=== PATIENT | female | born 2000 | race Caucasian/White ===

== ENCOUNTER 2021-07-30 15:26 | Outpatient (REF) | payer BC, SELFPAY ==
[2021-08-01 15:13] LABS: Chlamydia Result Negative (Negative); GC Result Negative (Negative)
== END 2021-07-30 15:27 | disposition home or self-care (01) ==
LOC: LBN 15:26
PROVIDERS: Visit Provider Physician Assistant Medical
DX: N39.0 Urinary tract infection, site not specified (principal); N89.8 Other specified noninflammatory disorders of vagina
CPT/HCPCS: 87077; 87491; 87591; 87086; 87186; 87480; 87510; 87660

== ENCOUNTER 2021-08-16 16:47 | Outpatient (REF) | payer BC, SELFPAY ==
[2021-08-16 16:28] LABS: Bacteria Many HPF (Negative); C & S Indicated? C&S Done As Ordered; Casts Negative LPF (Negative); Crystals Negative HPF (Negative); Epithelial Cells Few HPF (Negative); Mucus Trace (Negative); WBC >50 HPF (0-5)
[2021-08-17 15:06] LABS: Chlamydia Result Negative (Negative); GC Result Negative (Negative)
[2021-08-18 10:39] LABS: COVID-19 RT-PCR UVMMC Result Negative (Negative)
== END 2021-08-16 16:48 | disposition home or self-care (01) ==
LOC: LBN 16:47
PROVIDERS: Visit Provider Physician Assistant Medical
DX: Z20.822 Contact with and (suspected) exposure to COVID-19 (principal); J02.9 Acute pharyngitis, unspecified; N89.8 Other specified noninflammatory disorders of vagina; R30.0 Dysuria
CPT/HCPCS: 87077; 87491; 87591; U0003; 81015; 87070; 87086; 87186; 87480; 87510; 87660

== ENCOUNTER 2022-03-24 10:05 | Emergency (ER) | payer BC, SELFPAY ==
[2022-03-24 10:12] VITALS: BP 140/90; PULSE 127; RESP 20; TEMP 36.8; O2SAT 100
[2022-03-24 10:53] VITALS: PULSE 98; RESP 16; O2SAT 99
[2022-03-24 11:27] LABS: Abs Immature Grans 0.06 10^3/uL (0.0-0.06); Absolute Lymphocyte Count 1.09 10^3/uL (1.2-3.4); Absolute Neutrophil Count 13.27 10^3/uL (1.2-6.7); Basophils % 0.3; HCT 40.7 % (36.0-46.0); Immature Grans % 0.4; Lymphocytes % 7.2; MCH 31.9 pg (27.0-33.0); MCHC 34.4 % (32.0-36.0); MCV 93 fL (80-95); MPV 9.9 fL (8.0-11.0); Monocytes % 4.6; Neutrophils % 87.5; Platelet Count 264 10^3/uL (130-400); RBC 4.39 10^6/uL (3.93-5.22); RDW 12.9 % (11.7-14.6); RDW-SD 44.2 fL; WBC 15.16 10^3/uL (4.4-10.8)
[2022-03-24 11:32] LABS: Absolute Basophil Count 0.05 10^3/uL (0.0-0.2)
[2022-03-24 11:40] LABS: Hemoglobin A1C 4.9 % (<5.7)
[2022-03-24 11:42] LABS: ALT 19 U/L (14-59); AST 17 U/L (15-37); Albumin 3.9 g/dL (3.4-5.0); Alkaline Phosphatase 68 U/L (46-116); Anion Gap 11.6 mmol/L (3-11); BUN 10 mg/dL (7-18); Bilirubin, Total 0.6 mg/dL (0.2-1.0); CO2 23.4 mmol/L (21.0-32.0); CREATININE 0.9 mg/dL (0.55-1.02); Calcium 9.6 mg/dL (8.5-10.1); Chloride 105 mmol/L (98-107); Estimated GFR 93.28 (mL/min/1.73m2); Glucose 150 mg/dL (74-106); Potassium 3.5 mmol/L (3.5-5.1); Sodium 140 mmol/L (136-145); Total Protein 7.7 g/dL (6.4-8.2)
--- NOTE | 2022-03-24 12:07 | ED.GENADUL_ITS ---
Discharge Plan Disposition Patient Disposition: Home Condition: Stable Discharge Details Clinical Impression: Cellulitis of labia, Vaginal discharge Primary Care Provider: Shreya,Local ED Provider: Deanna Al Home Meds and New Rx's Prescriptions: New clindamycin HCl [Cleocin HCl] 150 mg capsule 450 mg PO TID Qty: 90 0RF Discharge Instructions Instructions: Cellulitis (ED) Additional Instructions: Take antibiotic as prescribed Warm soaks is much as possible Keep area clean and dry Your STD swabs will return and likely 72 hours if you do not hear from us that are likely negative Please follow-up with the resources instructed and I am placing a primary care physician referral, you may receive a call to establish care, I think this is very important Your blood sugar is at the higher end and should be reevaluated within the next week or so Also referred you to [facility] for reassessment Please refrain from any intercourse until you are reevaluated Discharge Data Discharge Date/Time-TO BE ENTERED AT DEPARTURE: 03/24/22 13:29 Medical Decision Making This 21-year-old female presents with vaginal swelling and tenderness Secondary to prior past medical history, I did order pelvic exam and diagnostic blood work She has visible swelling and induration to her labia and surrounding her pecto ral region, she was started on clindamycin We talked about STD treatment empirically and she has declined Negative test, mild elevation in blood glucose but A1c is 4.9 which is reassuring Repeat blood sugar 150 without any intervention Will supply with PCP follow-up Will place on antibiotics Will need close outpatient reassessment in 24 to 48 hours Return precautions reviewed and patient expressed understanding While she was here she also endorsed that she has been having significant d epression but denies any suicidality Case was discussed with mental health and she will be established outpatient and feels safe at discharge home at this time She is discharged home in stable condition with stable vitals Medical Records Medical records reviewed: Yes I reviewed the patient's medical records. Lab Data Lab results reviewed: Yes I reviewed the patient's lab results. HPI General Date/Time Provider Initiated Documentation: 03/24/22 10:20 . HPI Narrative: This 21-year-old female presents with pain surrounding her clitoris after having intercourse on Friday and Friday of this week. She also has concern for retained tampon secondary to some mild drainage and malodor. She denies any fever or chills. She denies any abdominal pain. She denies any chest pain or shortness of breath. She denies any chance of . Denies dysuria or frequency. Finished her menses on Friday of this week. Related Data Home Medications Medication Instructions Recorded Confirmed clindamycin HCl 150 mg capsule 450 mg PO TID #90 caps 03/24/22 (Cleocin HCl) Previous Rx's Medication Instructions Recorded clindamycin HCl 150 mg capsule 450 mg PO TID #90 caps 03/24/22 (Cleocin HCl) Allergies Allergy/AdvReac Type Severity Reaction Status Date / Time No Known Drug Allergies Allergy Unverified 03/24/22 10:17 General Stated Complaint: [facility] PETER: 3 PFSH All Active Problems (Updated 03/24/22 @ 12:11 by REY Neely) Cellulitis of labia (Acute) Vaginal discharge (Acute) Social History Smoking/Tobacco Use Status: Never Smoking risk assessment performed?: Yes Do you feel safe at home: Yes Do you feel safe in your relationship?: Yes Exam Const General: cooperative and comfortable Eyes Sclera: sclerae normal Resp Effort & Inspection: normal respiratory effort GI Inspection: normal to inspection Female genitals images: 1. Induration, erythema, tenderness No fluctuance Skin General skin exam: no rashes or lesions noted Neuro General: patient alert and patient oriented x3 Course Vital Signs Vital signs: Vital Signs Temperature 36.8 C 03/24/22 10:12 Pulse 127 H 03/24/22 10:12 Respiratory Rate 20 03/24/22 10:12 Blood Pressure 140/90 03/24/22 10:12 Pulse Oximetry 100 03/24/22 10:12 Temperature 36.8 C 03/24/22 10:12 Temperature Source Temporal Artery Scan 03/24/22 10:12 Pulse 98 H 03/24/22 10:53 Respiratory Rate 16 03/24/22 10:53 Respiratory Effort 03/24/22 10:22 Blood Pressure 140/90 03/24/22 10:12 Blood Pressure Position Sitting 03/24/22 10:12 Pulse Oximetry 99 03/24/22 10:53 Oxygen Delivery Method Room Air 03/24/22 10:53 Oxygen Flow Rate 0 03/24/22 10:53 Pain Level 1 03/24/22 10:22 Lab/Test Results Lab/Test Results: 03/24/22 11:00 Vaginal Vaginitis Screen - Pending Laboratory Tests Range/Units 03/24/22 03/24/22 03/24/22 11:15 11:15 11:15 WBC (4.4-10.8) 10^3/uL 15.16 H RBC (3.93-5.22) 10^6/uL 4.39 Hgb (11.2-15.7) g/dL 14.0 Hct (36.0-46.0) % 40.7 MCV (80-95) fL 93 MCH (27.0-33.0) pg 31.9 MCHC (32.0-36.0) % 34.4 RDW (11.7-14.6) % 12.9 Plt Count (130-400) 10^3/uL 264 MPV (8.0-11.0) fL 9.9 Immature Gran % 0.4 Neutrophils % 87.5 Lymphocytes % 7.2 Monocytes % 4.6 Eosinophils % 0.0 Basophils % 0.3 Nucleated RBC % (0.0-0.3) % 0.0 Absolute Neutrophils (1.2-6.7) 10^3/uL 13.27 H Absolute Lymphocytes (1.2-3.4) 10^3/uL 1.09 L Absolute Monocytes (0.1-0.8) 10^3/uL 0.70 Absolute Eosinophils (0.0-0.7) 10^3/uL 0.00 Absolute Basophils (0.0-0.2) 10^3/uL 0.05 Sodium (136-145) mmol/L 140 Potassium (3.5-5.1) mmol/L 3.5 Chloride (98-107) mmol/L 105 Carbon Dioxide (21.0-32.0) mmol/L 23.4 Anion Gap (3-11) mmol/L 11.6 H BUN (7-18) mg/dL 10 Creatinine (0.55-1.02) mg/dL 0.9 Est GFR (CKD-EPI 2020) (mL/min/1.73m2) 93.28 Glucose (74-106) mg/dL 150 H Hemoglobin A1c (<5.7) % 4.9 Calcium (8.5-10.1) mg/dL 9.6 Total Bilirubin (0.2-1.0) mg/dL 0.6 AST (15-37) U/L 17 ALT (14-59) U/L 19 Alkaline Phosphatase (46-116) U/L 68 Total Protein (6.4-8.2) g/dL 7.7 Albumin (3.4-5.0) g/dL 3.9
[2022-03-24 12:21] LABS: Bilirubin Negative (Negative); Blood Negative (Negative); Clarity Clear (Clear); Glucose Negative (Negative); Ketones 40 mg/dL (Negative); Leukocyte Esterase Negative (Negative); Nitrite Negative (Negative); Specific Gravity 1.015 (1.005-1.025); Urobilinogen 0.2 EU/dL (Up TO 0.2); pH 6.5 (5-8)
[2022-03-24 13:20] VITALS: BP 115/74; PULSE 85; O2SAT 97
--- NOTE | 2022-03-24 13:22 | NUR.NOTE ---
Nursing Note: Referral given to Care Management for needs PCP; abscess, elevated blood sugar; MERRY.
[2022-03-26 13:57] LABS: Chlamydia Result Negative (Negative); GC Result Negative (Negative)
== END 2022-03-24 13:29 | disposition home or self-care (01) ==
PROVIDERS: Emergency Provider Physician Assistant
DX: N76.2 Acute vulvitis (principal); N89.8 Other specified noninflammatory disorders of vagina; R73.09 Other abnormal glucose
CPT/HCPCS: 36416; 80053; 81025; 82962; 87491; 87591; 99283; 81003; 83036; 85025; 87480; 87510; 87660; 99284

== ENCOUNTER 2022-06-10 10:57 | Outpatient (REF) | payer BC, SELFPAY ==
--- NOTE | 2022-06-10 11:15 | PAPFT_PTH ---
PATIENT: Mandy Martin LOC: [facility] U#:[id number] AGE/SX: 21/F ROOM: RE06/10/[address]: Rhonda Johnson NP : 2000 BED: DIS: 06/10/2022 SPEC #: [id number] RECD: 06/10/22 12:47 STATUS: OSBALDO REQ #: [id number] ANNIE: 06/10/22 11:[address]: Rhonda Johnson NP DEPT: [facility] Cytology RECD BY: Deanna Clancy Tissues: 1 - CX/ENDOCX FOR PAP SMEARS Procedures: PAP THIN PREP/[facility] Screening Comments: [id number]
== END 2022-06-10 10:58 | disposition home or self-care (01) ==
LOC: LBN 10:57
PROVIDERS: Visit Provider Nurse Practitioner Women's Health
DX: Z12.4 Encounter for screening for malignant neoplasm of cervix (principal)
CPT/HCPCS: 88142